=== PATIENT | male | born 1985 | race Caucasian/White ===

== ENCOUNTER 2019-04-02 19:51 | Emergency (ER) | payer BC, OTHER ==
[2019-04-02] MEDS ORDERED: CLINDAMYCIN 600MG/50ML PREMIX 600 MG/50 ML BAG IVPB ONE (20:16)
--- NOTE | 2019-04-02 20:21 | Emergency Department Record ---
History of Present Illness - General Chief complaint: Dental Stated complaint: TOOTH ABCESS Time Seen by Provider: 04/02/19 20:03 Source: Patient Mode of Arrival: Ambulatory Limitations: No limitations - History of Present Illness Initial comments: The patient is here due to L lower molar dental pain for a week. He has a hx of a broken molar and now believes it is infected. The patient did have a lot of facial swelling but that is improved now. He did see a Dentist earlier in the week at [facility] and was started on Clindamycin but now is almost out. He had no trouble swallowing or breathing but is having more pain opening his mouth due to the L molar pain. MD complaint: Tooth pain Onset/Timin -: Days(s) Location: Tooth # Severity scale (1-10): 8 Quality: Aching Consistency: Constant Improves with: NSAID Worsens with: None Context- Dental: History of dental caries Associated Symptoms: Gum swelling, Toothache, Other - Related Data Home Medications Medication Instructions Recorded Confirmed Last Taken Clindamycin HCl 150 mg PO QID 04/02/19 04/02/19 Unknown Ibuprofen 800 mg PO TID 04/02/19 04/02/19 Unknown Ketorolac Tromethamine 10 mg PO QID 04/02/19 04/02/19 Unknown Prednisone [Prednisone 20Mg] 20 mg PO BID 04/02/19 04/02/19 Unknown Trazodone HCl 100 mg PO DAILY 04/02/19 04/02/19 Unknown Allergies Allergy/AdvReac Type Severity Reaction Status Date / Time amoxicillin Allergy HIVES Verified 04/02/19 20:12 azithromycin [From Zithromax] Allergy HIVES Verified 04/02/19 20:12 cefaclor [From Ceclor] Allergy HIVES Verified 04/02/19 20:12 cefuroxime [From Ceftin] Allergy HIVES Verified 04/02/19 20:12 Penicillins Allergy HIVES Verified 04/02/19 20:12 Travel Screening - Travel/Exposure Within Last 30 Days Have you traveled within the last 30 days?: No - Travel/Exposure Within Last Year Have you traveled outside the [place] in the last year?: No - Additonal Travel Details Have you been exposed to anyone with a communicable illness?: No - Travel Symptoms Symptom Screening: None Review of Systems Constitutional: Denies: Chills, Fever Eyes: Denies: Eye discharge ENT: Denies: Congestion Respiratory: Denies: Cough, Dyspnea Past Medical History - SOCIAL HISTORY Smoking Status: Current every day smoker Alcohol Use: Rare Drug Use: Heavy Drug Use Detail:: Marijuana - RESPIRATORY Hx Respiratory Disorders: No - CARDIOVASCULAR Hx Cardio Disorders: No - NEURO Hx Neuro Disorders: No - GI Hx GI Disorders: No - Hx Genitourinary Disorders: No - ENDOCRINE Hx Endocrine Disorders: No - MUSCULOSKELETAL Hx Musculoskeletal Disorders: No - PSYCH Hx Psych Problems: No - HEMATOLOGY/ONCOLOGY Hx Hematology/Oncology Disorders: No Family Medical History Any Significant Family History?: No Physical Exam - General General Appearance: Alert, Oriented x3, Cooperative, No acute distress (The patient is speaking in full sentences with no difficulty or "hot potato" voice.) - Head Head exam: Atraumatic, Normocephalic, Normal inspection - Eye Eye exam: Normal appearance, PERRL, EOMI - ENT Teeth exam: Dental tenderness #, Gingival enlargement, Other (THere is obvious gum line swelling over the L lower posterior molars with purulent drainage from the 2nd molar.). negative: Normal inspection Throat exam: Normal inspection. negative: Tonsillar erythema, Tonsillomegaly, Tonsillar exudate - Neck Neck exam: Normal inspection, Full ROM, Lymphadenopathy (There is mild tenderness over the L anterior submandibular gland area.), Tenderness. negative: Meningismus, Thyromegaly - Respiratory Respiratory exam: Normal lung sounds bilaterally. negative: Respiratory distress - Cardiovascular Cardiovascular Exam: Regular rate, Normal rhythm, Normal heart sounds Course Vital Signs 04/02/19 19:58 Temperature 98.6 F Pulse Rate [ 79 Left] Respiratory 16 Rate Blood Pressure 142/96 [Left Arm] Pulse Ox 98 - Reevaluation(s) Reevaluation #1: The patient is doing very well at this time. Due to the extent of the dental infection I do feel he will need to see an Oral Surgeon in the next 24 hours. Due to no one available here I did discuss the case with the [facility] ER attending Dr. Rubin and he does accept the patient in an ER to ER transfer. He will consult Oral Surgery once the patient arrives there. 04/02/19 21:10 Reevaluation #2: The patient understands the need to be NPO. 04/02/19 21:12 Medical Decision Making - Lab Data Result diagrams: 04/02/19 20:30 04/02/19 20:30 Disposition Disposition: Transfer Clinical Impression: Dental abscess [facility] Accepting Physician: Caryn. Time Discussed w/Accepting Physician: 21:12 Condition: (2) Stable Forms: Patient Portal Access Time of Disposition: 21:12 Quality - Quality Measures Quality Measures: N/A - Blood Pressure Screening View Details: Yes Does Patient Have Any of the Following: No Blood Pressure Classification: Hypertensive Reading Systolic Measurement: 135 Diastolic Measurement: 93 Screening for High Blood Pressure: < First Hypertensive BP, F/U Documented > [[id number]] First Hypertensive Follow-up Interventions: Referral to alternative/primary care provider.
[2019-04-02 20:34] LABS: HEMATOCRIT 40.1 % (42.0-52.0); HEMOGLOBIN 13.7 gm/dl (14.0-18.0); MEAN CELL VOLUME 88.1 fl (81-97); MEAN CORPUSCULAR HEMOGLOBIN 30.1 pg (27-33); MEAN CORPUSCULAR HGB CONC 34.2 g/dl (32-36); MEAN PLATELET VOLUME 8.7 fl (7.4-10.4); PLATELET COUNT 423 K/uL (130-400); RED BLOOD COUNT 4.55 M/uL (4.40-5.70); RED CELL DISTRIBUTION WIDTH 12.6 % (11.5-14.5); WHITE BLOOD COUNT W/O DIFF 16.7 K/uL (4.2-12.2)
[2019-04-02 20:43] LABS: BLOOD UREA NITROGEN 17 mg/dL (6-20); CREATININE 0.8 mg/dL (0.7-1.2); EST GLOMERULAR FILTRATION RATE > 60 mL/min
[2019-04-02 20:46] LABS: GLUCOSE,RANDOM 103 mg/dL (74-109)
[2019-04-02] MEDS ORDERED: KETOROLAC 30 MG/ML VIAL IVP ONE (21:09)
== END 2019-04-02 21:19 | disposition short-term general hospital (02) ==
LOC: ER 19:51
DX: K04.7 Periapical abscess without sinus (principal); F17.210 Nicotine dependence, cigarettes, uncomplicated
CPT/HCPCS: 99284 ×2; 96365; 96375; 80048; 85027; J1885